=== PATIENT | male | born 1980 | race African-American/Black ===

== ENCOUNTER 2024-03-07 06:25 | Emergency (ER) | payer BC ==
[2024-03-07 06:51] VITALS: BP 136/76; PULSE 103; RESP 14; TEMP 99.3; BMI 36.6
[2024-03-07] MEDS ORDERED: FAMOTIDINE 20 MG/50 ML IVPB 20 MG/50 ML MG IVPB ONE (08:51)
[2024-03-07] MEDS ORDERED: ACETAMINOPHEN INJECTION 100 ML ONE (08:51)
[2024-03-07 08:52] LABS: HEMATOCRIT 44.3 % (35.4-49); HEMOGLOBIN 14.5 GM/dL (11.7-16.9); MCH 30.2 pg (25.7-33.7); MCHC 32.7 g/dl (32.0-35.9); MEAN CELL VOLUME 92.3 fl (80-96); MEAN PLT VOLUME 8.3 fl (7.5-11.1); PLATELET COUNT 423 10^3/uL (134-434); RDW 13.6 % (11.9-15.9); WHITE BLOOD COUNT 14.3 K/mm3 (4.0-10.0)
[2024-03-07] MEDS ORDERED: ONDANSETRON 4 MG/2 ML VIAL ONE (08:54)
[2024-03-07] MEDS: FAMOTIDINE 20 MG/50 ML IVPB 20 MG/50 ML MG IVPB ONE (09:28)
[2024-03-07] MEDS: LACTATED RINGERS SOLUTION 1000 ML INFUS.BAG IV ONE (09:28)
[2024-03-07] MEDS: ONDANSETRON 4 MG/2 ML VIAL IVPUSH ONE (09:28)
[2024-03-07 09:30] LABS: ANISOCYTOSIS 0; MACROCYTOSIS 0
[2024-03-07] MEDS: ACETAMINOPHEN 1000 MG/100 ML BAG IVPB ONE (09:40)
[2024-03-07 09:46] LABS: POTASSIUM 4.3 mmol/L (3.5-5.1)
[2024-03-07 09:49] LABS: ALBUMIN 4.5 g/dl (3.4-5.0); CALCIUM 10.3 mg/dL (8.5-10.1)
[2024-03-07 09:50] LABS: BLOOD UREA NITROGEN 17.8 mg/dL (7-18); MAGNESIUM 1.9 mg/dL (1.8-2.4)
[2024-03-07 09:52] LABS: CREATININE 1.6 mg/dL (0.55-1.3)
[2024-03-07 09:54] LABS: BILIRUBIN,TOTAL 1.4 mg/dL (0.2-1); TOT PROT 8.7 g/dl (6.4-8.2)
== END 2024-03-07 11:07 | disposition home or self-care (01) ==
LOC: JER 06:25
PROC: 3E033GC Introduction of Other Therapeutic Substance into Peripheral Vein, Percutaneous Approach (ICD-10-PCS; principal; 2024-03-07)
PROC: 3E033NZ Introduction of Analgesics, Hypnotics, Sedatives into Peripheral Vein, Percutaneous Approach (ICD-10-PCS; 2024-03-07)
PROC: 3E033GC Introduction of Other Therapeutic Substance into Peripheral Vein, Percutaneous Approach (ICD-10-PCS; 2024-03-07)
DX: S00.83XA Contusion of other part of head, initial encounter (principal); S00.01XA Abrasion of scalp, initial encounter; K52.9 Noninfective gastroenteritis and colitis, unspecified; R55 Syncope and collapse; R11.2 Nausea with vomiting, unspecified; R42 Dizziness and giddiness; W18.30XA Fall on same level, unspecified, initial encounter; Z20.822 Contact with and (suspected) exposure to COVID-19
CPT/HCPCS: 0241U-QW; 36415; 80053; 83735; 85025; 93005; 93010; 99284-25; J0131